=== PATIENT | female | born 1955 ===

== ENCOUNTER 2017-04-28 00:05 | Emergency (ER) | payer OTHER ==
[2017-04-28 00:22] VITALS: BP 141/74; PULSE 91; RESP 16; TEMP 98.4; O2SAT 100
--- NOTE | 2017-04-28 01:07 | ED PDOC ---
HPI: Psych/Substance Abuse Time Seen by Provider: 04/28/17 00:24 Chief Complaint (Nursing): Dizziness/Lightheaded Chief Complaint (Provider): Depression History Per: Patient History/Exam Limitations: clinical condition Onset/Duration Of Symptoms: Days (4) Current Symptoms Are (Timing): Still Present Suicide/Self Injury Attempted (Context): None Modifying Factor(s): None Severity: Moderate Associated Symptoms: Depression. denies: Suicidal Thoughts, Suicidal Plan Involuntary Hold By: None Additional History Per: Patient Additional Complaint(s): 62 y/o female with PMHx Major Depressive Disorder and previous inpatient care for Depression with psychosis, who is here complaining of insomnia, poor appetite, and depression x4 days. She denies any visual/auditory hallucinations , suicidal or homicidal ideation. In the past, she was in the care of psychiatry but is not at this time. Patient also complains of weakness and dizziness. No falls, syncope, numbness, or other complaints. History limited by the patient's psychiatric condition. Past Medical History Reviewed: Historical Data, Nursing Documentation, Vital Signs Vital Signs: Last Vital Signs Temp 98.4 F 04/28/17 00:20 Pulse 91 H 04/28/17 00:20 Resp 16 04/28/17 00:20 BP 141/74 04/28/17 00:20 Pulse Ox 100 04/28/17 00:20 - Medical History PMH: Depression - Family History Family History: States: No Known Family Hx - Home Medications Home Medications: Ambulatory Orders Medication Instructions Recorded hydrOXYzine Pamoate [Vistaril] 25 mg PO HS PRN #7 cap 04/28/17 - Allergies Allergies/Adverse Reactions: Allergies Allergy/AdvReac Type Severity Reaction Status Date / Time Penicillins Allergy SWELLING Verified 04/28/17 00:20 Review of Systems ROS Statement: Except As Marked, All Systems Reviewed And Found Negative Neurological: Positive for: Weakness, Dizziness Psych: Positive for: Depression Physical Exam - Reviewed Nursing Documentation Reviewed: Yes Vital Signs Reviewed: Yes - Physical Exam Appears: Positive for: Well, Non-toxic, No Acute Distress Head Exam: Positive for: ATRAUMATIC, NORMAL INSPECTION, NORMOCEPHALIC Skin: Positive for: Normal Color, Warm, DRY Eye Exam: Positive for: EOMI, Normal appearance, PERRL ENT: Positive for: Normal ENT Inspection Neck: Positive for: Normal, Painless ROM Cardiovascular/Chest: Positive for: Regular Rate, Rhythm Respiratory: Positive for: CNT, Normal Breath Sounds Gastrointestinal/Abdominal: Positive for: Normal Exam, Bowel Sounds, Soft Back: Positive for: Normal Inspection Extremity: Positive for: Normal ROM Neurologic/Psych: Positive for: Alert, Oriented, Mood/Affect (flat) - ECG O2 Sat by Pulse Oximetry: 100 (RA) Pulse Ox Interpretation: Normal Medical Decision Making Medical Decision Making: Time: 1:08a Impression: 62 y/o female with multiple somatic complaints in the setting of known Major Depressive Disorder. Plan: - Crisis Evaluation 01:30: Crisis has seen the patient and cleared her for discharge. Follow up with [facility] arranged. All questions answered and there is agreement with the plan to discharge home with instructions. Patient stable for discharge. Return if symptoms persist or worsen. Scribe Attestation: Documented by Kecia Herr acting as a scribe for Roosevelt Harding MD. Scribe Attestation: All medical record entries made by the Scribe were at my direction and personally dictated by me. I have reviewed the chart and agree that the record accurately reflects my personal performance of the history, physical exam, medical decision making, and the department course for this patient. I have also personally directed, reviewed, and agree with the discharge instructions and disposition. Disposition - Clinical Impression Clinical Impression: Depression - Patient ED Disposition Is Patient to be Admitted: No Doctor Will See Patient In The: Office Counseled Patient/Family Regarding: Diagnosis, Need For Followup - Disposition Referrals: [facility] [Outside] Disposition: Routine/Home Disposition Time: 01:30 Condition: GOOD Additional Instructions: FOLLOW UP AT [address] [phone] YOU HAVE AN APPOINTMENT WITH [facility] ON MAY 08, 2017 AT 9:40AM Prescriptions: hydrOXYzine Pamoate [Vistaril] 25 mg PO HS PRN #7 cap PRN Reason: for insomnia Instructions: Depression (ED) Print Language: SAO TOMEAN
== END 2017-04-28 01:35 | disposition home or self-care (01) ==
LOC: H.ER 00:05
DX: F32.9 Major depressive disorder, single episode, unspecified (principal); Z88.0 Allergy status to penicillin; R42 Dizziness and giddiness; Z00.8 Encounter for other general examination

== ENCOUNTER 2017-04-29 17:39 | Inpatient (IN) | payer OTHER ==
--- NOTE | 2017-04-29 18:54 | ED PDOC ---
HPI: Altered Mental Status Time Seen by Provider: 04/29/17 18:18 Chief Complaint (Nursing): Altered Mental Status History Per: Patient History/Exam Limitations: Other (pt refuses to answer) Onset/Duration Of Symptoms: Gradual (for 1 week) Current Symptoms Are (Timing): Still Present Description Of Symptoms: Not At Baseline Usual Baseline: Alert Confused Use Of Anticoag/Antiplatlets: No Severity: Mild Associated Symptoms: Headache, Confused, Agitated, Trouble Concentrating, Trouble Thinking, Not Eating, Not Drinking, Combative. denies: Fever, Chills, Neck Pain, Back Pain, Seizure, Disoriented, Vomiting, Diarrhea, Dyspnea, Incontinence Past Medical History Reviewed: Historical Data, Nursing Documentation, Vital Signs Vital Signs: Last Vital Signs Temp 98.7 F 04/29/17 17:45 Pulse 95 H 04/29/17 17:45 Resp 22 04/29/17 17:45 BP 160/90 H 04/29/17 17:45 Pulse Ox 97 04/29/17 17:45 - Medical History PMH: Depression Denies: Diabetes, Hepatitis, HIV, HTN, Chronic Kidney Disease, Seizures, Sexually Transmitted Disease - Surgical History Surgical History: No Surg Hx - Family History Family History: States: Unknown Family Hx - Living Arrangements Living Arrangements: With Family - Social History Current smoker - smoking cessation education provided: No Drugs: Denies - Home Medications Home Medications: Ambulatory Orders Medication Instructions Recorded hydrOXYzine Pamoate [Vistaril] 25 mg PO HS PRN #7 cap 04/28/17 - Allergies Allergies/Adverse Reactions: Allergies Allergy/AdvReac Type Severity Reaction Status Date / Time Penicillins Allergy SWELLING Verified 04/28/17 00:20 Review of Systems Review Of Systems: ROS cannot be obtained secondary to pt's inabilty to answer questions. Psych: Positive for: Psychosis Physical Exam - Physical Exam Appears: Positive for: Uncomfortable Head Exam: Positive for: ATRAUMATIC, NORMAL INSPECTION, NORMOCEPHALIC Skin: Positive for: Normal Color, Warm, Dry Eye Exam: Positive for: Normal appearance, EOMI, PERRL Neck: Positive for: Normal, Painless ROM, Supple. Negative for: Decreased ROM, Limited ROM, Trachea Midline Cardiovascular/Chest: Positive for: Regular Rate, Rhythm, Chest Non Tender. Negative for: Edema, Gallop, Murmur, Bradycardia, Tachycardia Respiratory: Positive for: Normal Breath Sounds. Negative for: Decreased Breath Sounds, Accessory Muscle Use, Crackles, Rales, Rhonchi, Stridor, Wheezing Gastrointestinal/Abdominal: Positive for: Normal Exam, Bowel Sounds, Soft. Negative for: Tenderness Extremity: Positive for: Normal ROM. Negative for: Tenderness, Pedal Edema Neurologic/Psych: Positive for: Alert, director child abuse therapy II-XII, Oriented, Mood/Affect (flat) . Negative for: Motor/Sensory Deficits, Aphasia, Facial Droop - ECG O2 Sat by Pulse Oximetry: 97 Pulse Ox Interpretation: Normal Disposition - Clinical Impression Clinical Impression: Depression - Patient ED Disposition Is Patient to be Admitted: Transfer of Care Counseled Patient/Family Regarding: Studies Performed, Diagnosis - Disposition Disposition: Transfer of Care Disposition Time: 18:57 Condition: STABLE Patient Signed Over To: Дмитрий Aponte
[2017-04-29 18:58] LABS: BASO # 0.1 K/uL (0.0-0.2); BASO % 0.8 % (0.0-2.0); EOS # 0.1 K/uL (0.0-0.7); EOS % 0.5 % (0.0-4.0); HEMATOCRIT 44.1 % (34.0-47.0); LYMPH # 4.3 K/uL (1.0-4.3); LYMPH % 36.9 % (20.0-40.0); MEAN CELL VOLUME 86.6 fl (81.0-99.0); MEAN CORPUSCULAR HEMOGLOBIN 28.2 pg (27.0-31.0); MEAN CORPUSCULAR HGB CONC 32.6 g/dL (33.0-37.0); MEAN PLATELET VOLUME 11.6 fl (7.2-11.7); MONO # 0.9 K/uL (0.0-0.8); MONO % 7.8 % (0.0-10.0); NEUT # 6.3 K/uL (1.8-7.0); RED CELL DISTRIBUTION WIDTH 12.8 % (11.5-14.5); WHITE BLOOD COUNT 11.7 K/uL (4.8-10.8)
--- NOTE | 2017-04-29 19:15 | ED PDOC ---
- Laboratory Results Result Diagrams: 04/29/17 18:48 04/29/17 18:50 - ECG O2 Sat by Pulse Oximetry: 97 (RA) Pulse Ox Interpretation: Normal Medical Decision Making Medical Decision Makin:00 Patient is signed out to me by Jose F Talley MD pending crisis evaluation, reevaluation, and final disposition. 21:00 Patient is being placed in ED observation for serial examination to determine stability for disposition. Patient s/o to Dr. Ruiz at 0700 pending [facility] screening. Scribe Attestation: Documented by Deepa Espinosa, acting as a scribe for Дмитрий Aponte MD. Provider Scribe Attestation: All medical record entries made by the Scribe were at my direction and personally dictated by me. I have reviewed the chart and agree that the record accurately reflects my personal performance of the history, physical exam, medical decision making, and the department course for this patient. I have also personally directed, reviewed, and agree with the discharge instructions and disposition. Disposition - Clinical Impression Clinical Impression: Depression - POA Present On Arrival: None - Disposition Disposition: Transfer of Care Disposition Time: 07:00 Condition: STABLE Patient Signed Over To: Buffy Ruiz Handoff Comments: pending [facility] [facility] screening ED OBSERVATION Date of observation admission: 04/29/17 Time of observation admission: 22:36 - Observation admission statement Patient is being placed in observation because:: Need for additional diagnostics to rule-out acute or life threatening condition - Goals of Observation Goals of observation are:: Psychiatric stabilization. - Progress Note Progress Note: 04/29/17 22:38 Patient is currently pending crisis evaluation and possible evaluation by [facility] [facility].
[2017-04-29 19:19] LABS: ALB/GLOB RATIO 1.1 (1.0-2.1); ALCOHOL SERUM < 10 mg/dl (0-10); ALKALINE PHOSPHATASE 94 U/L (38-126); ALT/SGPT 67 U/L (9-52); AST/SGOT 53 U/L (14-36); BILIRUBIN,TOTAL 0.6 mg/dl (0.2-1.3); BLOOD UREA NITROGEN 15 mg/dl (7-17); CALCIUM 9.9 mg/dL (8.4-10.2); CARBON DIOXIDE 25 mmol/L (22-30); CHLORIDE 103 mmol/L (98-107); GFR AFRICAN-AMERICAN > 60; GLUCOSE,RANDOM 112 mg/dL (65-105); LIPASE 124 U/L (23-300); POTASSIUM 3.9 MMOL/L (3.6-5.0); SODIUM 142 mmol/l (132-148); TOTAL PROTEIN 9.5 G/DL (6.3-8.2)
--- NOTE | 2017-04-29 19:47 | CT ---
EXAM: CT Head Without Intravenous Contrast CLINICAL HISTORY: 62 years old, female; Signs and symptoms; Altered mental status/memory loss; Confusion or disorientation; Additional info: AMS. Sent phy. Doc. With request TECHNIQUE: Axial computed tomography images of the head/brain without intravenous contrast. This CT exam was performed using one or more of the following dose reduction techniques: automated exposure control, adjustment of the mA and/or kV according to patient size, and/or use of iterative reconstruction technique. Coronal and sagittal reformatted images were created and reviewed. EXAM DATE/TIME: 04/29/2017 6:34 PM COMPARISON: CT HEAD OR BRAIN W/O CONT 07/23/2012 1:13:36 PM FINDINGS: Brain: Ventricles are normal in size and configuration. There is no midline shift. There are no intra-axial or extra-axial mass lesions or areas of hemorrhage. There are no abnormal fluid collections. Ott-white differentiation is maintained. Ventricles: See above. Bones: Cranial vault is intact. Soft tissues: unremarkable Sinuses: There is no acute sinusitis. Ears and mastoids: Middle ears and mastoids are unremarkable Orbits: Orbital contents are unremarkable. IMPRESSION: No acute intracranial abnormality
[2017-04-29 20:50] LABS: URINE BILIRUBIN NEGATIVE (NEGATIVE); URINE BLOOD NEGATIVE (NEGATIVE); URINE COLOR STRAW (YELLOW); URINE GLUCOSE (UA) NEG (Normal); URINE KETONE NEGATIVE (NEGATIVE); URINE LEUKOCYTE ESTERASE NEG Leu/uL (Negative); URINE PROTEIN NEGATIVE (NEGATIVE); URINE UROBILINOGEN 0.2-1.0 mg/dL (0.2-1.0)
--- NOTE | 2017-04-30 07:24 | ED PDOC ---
- Laboratory Results Result Diagrams: 04/29/17 18:48 04/29/17 18:50 - ECG O2 Sat by Pulse Oximetry: 97 (RA) Medical Decision Making Medical Decision Making: received patient form Dr. Aponte. Patient pending [facility] screening. 09.03a - patient to be transferred to [facility] - 03.30p. patient decided to sign in voluntarily Disposition Doctor Will See Patient In The: Hospital - Clinical Impression Clinical Impression: Depression, Schizoaffective disorder - POA Present On Arrival: None - Disposition Disposition: Admitted as In-Patient Disposition Time: 16:30 Condition: STABLE
--- NOTE | 2017-04-30 08:13 | CARD ---
APPROVED REPORT EKG Measurement Heart [id number] CT 140P48 [id number] <Conclusion> Normal sinus rhythm Normal ECG
--- NOTE | 2017-04-30 10:01 | RAD ---
PROCEDURE: CHEST RADIOGRAPH, 1 VIEW HISTORY: ams COMPARISON: None available. FINDINGS: LUNGS: Clear. PLEURA: No pneumothorax or pleural fluid seen. CARDIOVASCULAR: Normal. OSSEOUS STRUCTURES: No significant abnormalities. VISUALIZED UPPER ABDOMEN: Normal. OTHER FINDINGS: None. IMPRESSION: No active disease.
[2017-04-30 22:59] VITALS: RESP 18
[2017-05-01] MEDS ORDERED: Magnesium Hydroxide Susp 30 ml UD PO PRN (04:44)
[2017-05-01] MEDS ORDERED: DiphenhydrAMINE 50 mg/ml Inj IM PRN (04:44)
[2017-05-01] MEDS ORDERED: Alum-Mag Hydrox-Simethicone Susp (30 mL) PO PRN (04:44)
[2017-05-01] MEDS ORDERED: Pneumococcal 23-Valent Vaccine IM ONE (09:00)
--- NOTE | 2017-05-01 09:35 | PCM.PSYCH ---
Initial Psychiatric Evaluation - Initial Psychiatric Evaluation Type of Admission: Voluntary Legal Status: Other (pt is confused and refusing treatment) Chief Complaint (in patient's own words): pt closes eyes Patient's Reaction to Hospitalization: uncooperative History of Present Illness and Precipitating Events: pt seen with zambian speaking social media content specialist. pt is confused and unable to give any details regarding her admission or why she is in the hospital. pt was brought to the ER by her family. she recently had a behavioral change family feels was precipitated by a move. the patient was not oriented in the ER was screened and was accepted at [facility]. at some point, the patient allegedly became oriented and calm. The PES worker was able to have patient agree to treatment and, by their report, understand the admission form and sign in voluntarily to the hospital. Upon arrival to the unit, the patient was grossly disoriented, confused, agitated and refusing treatment. This morning she is pacing the unit and trying to enter every room on the unit. she is oriented to self and place but cannot say why she is here. she does not acknowledge the need for treatment. she is refusing medications. she cannot provide any history. per the chart. pes assessment: "obtained additional collateral information from the pt.s son and daughter, Deepa Goodson ([phone]).. The pt.s children report that the stress of a recent relocation may have contributed to the pt.s altered her mental status. The pt.s son reports that the pt. is refusing to tend to her hygiene. The pt.s daughter reports that the pt. has been exhibiting irritable behavior within the home setting and is somewhat paranoid. The pt.s son reports that the pt. is having difficulty remembering. The pt.s son reports that the pt. is exhibiting odd behavior, asking her children not to pull her hair. The pt.s children report that the pt. is religiously pre-occupied, reporting to her children that the saints will take care of her. The pt.s son reports that in 2008 the pt. exhibited similar symptoms, also reporting that the pt. had an incident where she fell back and hit her head; the pt. was medically cleared and she was given medication prescriptions as follow: Prozac 40Mg; Haldol 5Mg; Cogentin 1Mg; Depakote 250Mg. The pt.s son reports that in 2011 the pt. was admitted to the psychiatric unit for similar symptoms. The pt. daughter reports that the pt. does have a thyroid problem but no other known medical issues. The pt.s daughter reports that her grandmother had a history of forgetfulness. The pt.s daughter reports that the pt. is exhibiting symptoms of depression recalling many past memories about things that she has lost or people that have . The pt.s son reports that the pt. does not always express her feelings. The pt.s son reports that the pt. was asking her son not to touch her and was exhibiting paranoid behavior. The pt.s daughter reports that the pt. has not slept in 4-5 days. " Current Medications: Active Medications Generic Name Dose Route Start Last Admin Trade Name Freq PRN Reason Stop Dose Admin Acetaminophen 650 mg 05/01/17 04:44 Tylenol 325mg Tab PO Q4 PRN Pain, moderate (4-7) Al Hydrox/Mg Hydrox/Simethicone 30 ml 05/01/17 04:44 Maalox Plus 30 Ml PO Q4 PRN Dyspepsia Diphenhydramine HCl 50 mg 05/01/17 04:44 Benadryl IM Q6 PRN Extrapyramidal S/S Unable PO Diphenhydramine HCl 50 mg 05/01/17 04:44 Benadryl PO Q6 PRN Extrapyramidal Symptoms Haloperidol 5 mg 05/01/17 04:44 Haldol PO Q4 PRN Agitation Haloperidol 2 mg 05/01/17 09:30 Haldol PO BID JAN Haloperidol Lactate 5 mg 05/01/17 04:44 Haldol IM Q4 PRN Agitation, Unable to Take PO Lorazepam 1 mg 05/01/17 04:44 05/01/17 05:15 Ativan IM 1 mg Q4 PRN Administration Anxiety/Agitation,Unable PO Lorazepam 1 mg 05/01/17 04:44 Ativan PO Q4 PRN Anxiety/Agitation Magnesium Hydroxide 30 ml 05/01/17 04:44 Milk Of Magnesia PO HS PRN Constipation Past Psychiatric History - Past Psychiatric History Previous Treatment History: Inpatient Prior Professional Help: was on depakote, haldol and cogentin in the past At [facility] hospital: previously admitted at [facility] History of Abuse: unknown History of ETOH/Drug Use: no known history History of Family Illness: unknown Pertinent Medical Hx (Current Medical&Sleep Prob, Allergies): Allergies Allergy/AdvReac Type Severity Reaction Status Date / Time Penicillins Allergy SWELLING Verified 04/28/17 00:20 Unobtainable 04/30/17 Review of Systems - Psychiatric Psychiatric: As Per HPI, Abnormal Sleep Pattern, Anxiety, Behavioral Changes, Confusion, Irritability, Suicidal Ideation Mental Status Examination - Personal Presentation Personal Presentation: Looks stated age Additional comments: unkempt, unsteady gait - Affect Affect: Constricted - Motor Activity Motor Activity: Psychomotor Agitation - Reliability in Providing Information Reliability in Providing Information: Poor, due to alteration in thoughts, Poor , due to altered mood - Speech Speech: Disorganized, Tangential - Mood Mood: Anxious, Other (agitated) - Formal Thought Process Formal Thought Process: Loosening of associations, Flight of ideas, Circumstantial - Obsessions/Compulsions Obsessions: No Compulsions: No - Cognitive Functions Orientation: Person, Place Sensorium: Alert Attention/Concentration: Easily distracted Abstract Thinking: [place] Estimate of Intelligence: Below average Judgement: Imparied, as evidence by: Poor judgement, Imparied, as evidence by: Lack of insight into illness Memory: Recent impaired, as evidence by: Inability to recall events of the day, Remote impaired as evidenced by: Inability to recall sig life events - Risk Risk: Suicidal (per chart passive thoughts), Elopement, Falls, Diminished functioning - Strength & Assets Inventory Strength & Assets Inventory: Family support - Limitations Limitations: Decreased memory, recent DSM 5 DX - DSM 5 DSM 5 Diagnosis: schizoaffective disorder, bipolar type by history - Recommended/Plan of Treatment Treatment Recommendations and Plan of Treatment: pt has been admitted to [facility] by dr. berg we will keep the pt on a 1:1 supervision we will restart pt's previous medications, but at this point pt is refusing the patient will be screened again for involuntary treatment at [facility] as she is a danger to self, not oriented and is not accepting treatment- she has spit out oral meds that were offered hospitalist consult Projected ELOS: 5 days Prognosis: guarded
[2017-05-01 13:02] LABS: CHOLESTEROL 237 mg/dL (0-199)
--- NOTE | 2017-05-01 13:16 | CP.PCM.HP ---
History of Present Illness - History of Present Illness History of Present Illness: CC: Medical consult HPI: Patient was seen and examined at bedside, patient appears sedated from medication. History was obtained from medical chart and not able to obtained from patient. 62 year old female with PMHx of HTN , depression and schizoaffective disorder admitted for worsening behavioral changes. Patient denies any Chest pain,no SOB, no fevers, no chills. There is no nausea , no emesis, no diarrhea, no hematochezia, no melena, no dysuria, no frequency or urgency. There are no complaints of myalgia or arthralgias, no URI symptoms , no numbness or tingling or limb weakness. ROS: pertinent positives in HPI, all other 10 ROS are negative by me PMD: None PMH: HTN, depression and schizoaffective disorder PSH: none MEDICATIONS: Prozac 40mg, Haldol 5mg; Cogentin 1mg; Depakote 250mg ALLERGIES: PCN FH: Denies any FH of CAD/SD, HTN, CVA, Cancer, DM II SH: Tobacco - Denies EtOH - Denies Drugs - Denies Advanced Directives/Surrogate: Deepa Lay ([phone]) Present on Admission - Present on Admission Any Indicators Present on Admission: No Review of Systems - Review of Systems All systems: reviewed and no additional remarkable complaints except - Constitutional Constitutional: As Per HPI Past Patient History - Infectious Disease Hx of Infectious Diseases: None - Past Social History Drugs: Denies - CARDIAC Hx Cardiac Disorders: No - PULMONARY Hx Respiratory Disorders: No - NEUROLOGICAL Hx Neurological Disorder: No - HEENT Hx HEENT Problems: No - RENAL Hx Chronic Kidney Disease: No - ENDOCRINE/METABOLIC Hx Endocrine Disorders: Yes 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,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) - HEMATOLOGICAL/ONCOLOGICAL Hx Blood Disorders: No - INTEGUMENTARY Hx Dermatological Problems: No - MUSCULOSKELETAL/RHEUMATOLOGICAL Hx Musculoskeletal Disorders: No - GASTROINTESTINAL Hx Gastrointestinal Disorders: No - GENITOURINARY/GYNECOLOGICAL Hx Genitourinary Disorders: No - PSYCHIATRIC Hx Substance Use: No - SURGICAL HISTORY Hx Surgeries: No - ANESTHESIA Hx Anesthesia: No Meds Allergies/Adverse Reactions: Allergies Allergy/AdvReac Type Severity Reaction Status Date / Time Penicillins Allergy SWELLING Verified 04/28/17 00:20 Physical Exam - Constitutional Appears: Unkempt, Older Than Stated Age, Confused - Head Exam Head Exam: ATRAUMATIC, NORMAL INSPECTION - ENT Exam ENT Exam: Mucous Membranes Moist, Normal Exam - Neck Exam Neck exam: Positive for: Full Rom - Respiratory Exam Respiratory Exam: Clear to Auscultation Bilateral, NORMAL BREATHING PATTERN - Cardiovascular Exam Cardiovascular Exam: REGULAR RHYTHM, RRR - GI/Abdominal Exam GI & Abdominal Exam: Normal Bowel Sounds, Soft - Extremities Exam Extremities exam: Positive for: normal inspection - Back Exam Back exam: CVA tenderness (L) - Neurological Exam Neurological exam: Altered - Skin Skin Exam: Normal Color, Warm Results - Vital Signs Recent Vital Signs: Last Vital Signs Temp 98.2 F 04/30/17 20:53 Pulse 93 H 04/30/17 20:53 Resp 18 04/30/17 22:30 BP 155/83 H 04/30/17 20:53 Pulse Ox 99 04/30/17 20:53 - Labs Result Diagrams: 04/29/17 18:48 04/29/17 18:50 Labs: Laboratory Results - last 24 hr 05/01/17 12:32 Triglycerides 202 H Cholesterol 237 H LDL Cholesterol Direct 151 H HDL Cholesterol 44 Assessment & Plan (1) Schizoaffective disorder Status: Acute Comment: Patient will be transfer to [facility]. continue current management (2) Depression Status: Acute Comment: continue with current management (3) Hypertension Status: Acute Comment: -stable. -no med for now. -monitor vitals Decision To Admit - Pt Status Changed To: Hospital Disposition Of: Inpatient - Admit Certification Admit to Inpatient:: After my assessment, the patient will require hospitalization for at least two midnights. This is because of the severity of symptoms shown, intensity of services needed, and/or the medical risk in this patient being treated as an outpatient. - . Bed Request Type: Adult Psychiatry Admitting Physician: Wanda Jiménez
[2017-05-01] MEDS: Divalproex 125 mg Sprinkle Capsule PO SCH (17:28)
[2017-05-01 23:33] VITALS: BP 124/70; PULSE 86; TEMP 97.6; O2SAT 98
[2017-05-02] MEDS: Divalproex 125 mg Sprinkle Capsule PO SCH ×2 (08:53→17:24)
--- NOTE | 2017-05-02 10:39 | PCM.PYCHPN ---
Psychiatric Progress Note - Psychiatric Progress Note Patient seen today, length of contact: discussed with team Patient Chief Complaint: sleeping Problems Identified/Issues Discussed: pt sleeping. she is accepted at [facility] [place]. she was agitated, pacing and with poor impulse control yesterday. given im meds. took meds by mouth this am. Medication Change: No Medical Record Reviewed: Yes Mental Status Examination - Cognitive Function Orientation: Person, Place Memory: Intact Attention: Poor Concentration: Poor Association: Loose Fund of Knowledge: Poor Decription of patient's judgement and insights: poor - Mood Mood: Anxious, Other (agitated) - Affect Affect: Constricted - Formal Thought Process Formal Thought Process: Loosening of associations, Flight of ideas, Circumstantial - Suicidal Ideation Suicidal Ideation: No - Homicidal Ideation Homicidal Ideation: No Goal/Treatment Plan - Goal/Treatment Plan Need for Continued Stay: Remain at risks for inpatient hospitalization, Discharge may exacerbated symptoms Progress Toward Problem(s) and Goals/Treatment Plan: schizoaffective disorder continue current medications transfer to [facility] [place] when bed available continue 1:1 supervision Estimated Date of D/C: 05/02/17
--- NOTE | 2017-05-03 10:37 | PCM.PYCHPN ---
Psychiatric Progress Note - Psychiatric Progress Note Patient seen today, length of contact: discussed with team Patient Chief Complaint: pt has been [place] [facility] [place] transferred to [facility] [place]. Medication Change: No Medical Record Reviewed: Yes Mental Status Examination - Cognitive Function Orientation: Person, Place Memory: Intact Attention: Poor Concentration: Poor Association: Loose Fund of Knowledge: Poor - Mood Mood: Anxious, Other (agitated) - Affect Affect: Constricted - Formal Thought Process Formal Thought Process: Loosening of associations, Flight of ideas, Circumstantial - Suicidal Ideation Suicidal Ideation: No - Homicidal Ideation Homicidal Ideation: No Goal/Treatment Plan - Goal/Treatment Plan Need for Continued Stay: Remain at risks for inpatient hospitalization, Discharge may exacerbated symptoms Estimated Date of D/C: 05/02/17
== END 2017-05-03 02:00 | DRG 430 ==
LOC: H.ER 17:39 → H.EROBSV 21:00 → OBSVTOIN 04-30 16:27 → H.ERHOLD 04-30 17:39 → H.PSYCH 04-30 22:04
PROVIDERS: ADMIT Psychiatry & Neurology Psychiatry; ATTEND Psychiatry & Neurology Psychiatry
PROC: GZ51ZZZ Individual Psychotherapy, Behavioral (ICD-10-PCS; principal; 2017-04-30)
DX: F25.0 Schizoaffective disorder, bipolar type (principal); I10 Essential (primary) hypertension; E03.9 Hypothyroidism, unspecified

== ENCOUNTER 2017-07-14 12:13 | Emergency (ER) | payer OTHER ==
[2017-07-14 12:30] VITALS: BP 154/77; PULSE 76; RESP 16; TEMP 97.1; O2SAT 97
[2017-07-14 14:31] LABS: BASO # 0.1 K/uL (0.0-0.2); BASO % 0.9 % (0.0-2.0); EOS # 0.1 K/uL (0.0-0.7); EOS % 0.6 % (0.0-4.0); HEMOGLOBIN 14.4 g/dL (12.0-16.0); LYMPH # 3.5 K/uL (1.0-4.3); LYMPH % 40.2 % (20.0-40.0); MEAN CELL VOLUME 87.7 fl (81.0-99.0); MEAN CORPUSCULAR HEMOGLOBIN 28.9 pg (27.0-31.0); MEAN PLATELET VOLUME 11.9 fl (7.2-11.7); MONO # 0.5 K/uL (0.0-0.8); MONO % 5.2 % (0.0-10.0); NEUT # 4.6 K/uL (1.8-7.0); NEUT % 53.1 % (50.0-75.0); NRBC % 0.1 % (0.0-0.0); RBC 4.99 Mil/uL (3.80-5.20); RED CELL DISTRIBUTION WIDTH 13.2 % (11.5-14.5); WHITE BLOOD COUNT 8.7 K/uL (4.8-10.8)
[2017-07-14 14:37] LABS: ACETAMINOPHEN < 10.0 ug/ml (10.0-30.0); BLOOD UREA NITROGEN 17 mg/dl (7-17); CALCIUM 9.7 mg/dL (8.4-10.2); GFR AFRICAN-AMERICAN > 60; GFR NON-AFRICAN AMERICAN > 60; SALICYLATE < 1.0 mg/dl
--- NOTE | 2017-07-14 15:40 | CT ---
PROCEDURE: CT HEAD WITHOUT CONTRAST. HISTORY: diffuse tremors COMPARISON: Noncontrast head CT performed 04/29/17 TECHNIQUE: Axial computed tomography images were obtained through the head/brain without intravenous contrast. Radiation dose: Total exam DLP = 1064.08 mGy-cm. This CT exam was performed using one or more of the following dose reduction techniques: Automated exposure control, adjustment of the mA and/or kV according to patient size, and/or use of iterative reconstruction technique. FINDINGS: HEMORRHAGE: No intracranial hemorrhage. BRAIN: No mass effect or edema. The van-white matter differentiation appears intact. Please note that MRI with diffusion imaging is more sensitive in the detection of acute ischemic event. VENTRICLES: No hydrocephalus. CALVARIUM: Unremarkable. PARANASAL SINUSES: Unremarkable as visualized. No significant inflammatory changes. MASTOID AIR CELLS: Unremarkable as visualized. No inflammatory changes. OTHER FINDINGS: None. IMPRESSION: No acute intracranial pathology identified.
--- NOTE | 2017-07-14 16:34 | ED PDOC ---
HPI: Psych/Substance Abuse Time Seen by Provider: 07/14/17 12:53 Chief Complaint (Nursing): Psychiatric Evaluation History Per: Patient, Family History/Exam Limitations: no limitations Onset/Duration Of Symptoms: Gradual Current Symptoms Are (Timing): Still Present Modifying Factor(s): None Severity: Mild Additional History Per: Patient, Family Additional Complaint(s): Pt. complains of "feeling anxious and no relief from anxiety even though taking Lorazepam 0.5mg x 2 months and noticed uncontrollable shaking of head x 1 week" . 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) Denies: Diabetes, Hepatitis, HIV, HTN, Chronic Kidney Disease, Seizures, Sexually Transmitted Disease - Family History Family History: States: Unknown Family Hx - Living Arrangements Living Arrangements: With Family - Social History Current smoker - smoking cessation education provided: No - Home Medications Home Medications: Ambulatory Orders Medication Instructions Recorded Ciprofloxacin [Cipro] 500 mg PO BID #20 tab 07/14/17 - Allergies Allergies/Adverse Reactions: Allergies Allergy/AdvReac Type Severity Reaction Status Date / Time Penicillins Allergy SWELLING Verified 04/28/17 00:20 Review of Systems ROS Statement: Except As Marked, All Systems Reviewed And Found Negative Constitutional: Negative for: Fever, Chills Cardiovascular: Negative for: Chest Pain, Palpitations Respiratory: Negative for: Cough, Shortness of Breath Gastrointestinal: Negative for: Nausea, Vomiting, Abdominal Pain Genitourinary Female: Negative for: Dysuria Musculoskeletal: Negative for: Neck Pain Neurological: Positive for: Other (has mild head bobbing no other tremors intermittent). Negative for: Weakness, Numbness, Change in Speech, Confusion, Seizures, Altered Mental Status, Headache, Dizziness Psych: Negative for: Anxiety, Depression, Psychosis, Suicidal ideation, Withdrawal Physical Exam - Reviewed Nursing Documentation Reviewed: Yes Vital Signs Reviewed: Yes - Physical Exam Appears: Positive for: Well, No Acute Distress Head Exam: Positive for: NORMAL INSPECTION, NORMOCEPHALIC Eye Exam: Positive for: Normal appearance, EOMI, PERRL Neck: Positive for: Normal, Painless ROM, Supple Cardiovascular/Chest: Positive for: Regular Rate, Rhythm, Chest Non Tender. Negative for: Edema, Gallop Respiratory: Positive for: Normal Breath Sounds. Negative for: Decreased Breath Sounds, Accessory Muscle Use, Crackles, Rales, Rhonchi, Stridor, Wheezing Gastrointestinal/Abdominal: Positive for: Normal Exam, Bowel Sounds, Soft. Negative for: Tenderness Back: Positive for: Normal Inspection. Negative for: L CVA Tenderness, R CVA Tenderness Extremity: Positive for: Normal ROM. Negative for: Tenderness, Pedal Edema, Calf Tenderness, Capillary Refill, Deformity, Swelling Neurologic/Psych: Positive for: Alert, recycling center operator II-XII, Oriented, Mood/Affect (calm) , Cerebellar Tests (nml), Gait (steady), Other (mild head bobbing). Negative for: Motor/Sensory Deficits, Aphasia, Facial Droop - Laboratory Results Result Diagrams: 07/14/17 14:23 07/14/17 14:23 Urine dip results: Positive for: Nitrate - ECG O2 Sat by Pulse Oximetry: 97 Pulse Ox Interpretation: Normal - Progress ED Course And Treament: advise antibotics advise close f/u in med clinic Re-evaluation Time: 16:00 Condition: Improved Disposition - Clinical Impression Clinical Impression: UTI (urinary tract infection), Tremors of nervous system - Patient ED Disposition Is Patient to be Admitted: No Counseled Patient/Family Regarding: Studies Performed, Diagnosis, Need For Followup, Rx Given - Disposition Referrals: [facility] [Outside] (2 to 3 days) Disposition: Routine/Home Disposition Time: 16:32 Condition: GOOD Prescriptions: Ciprofloxacin [Cipro] 500 mg PO BID #20 tab Instructions: Urinary Tract Infection in Women (ED), Tremors (ED) Forms: [employer] (Yoruba) Print Language: IRISH
[2017-07-14 16:52] LABS: BARBITURATES, UR NEGATIVE (NEGATIVE); BENZODIAZEPINES, UR NEGATIVE (NEGATIVE); OPIATES, UR NEGATIVE (NEGATIVE); PHENCYCLIDINE, UR NEGATIVE (NEGATIVE)
[2017-07-14 17:36] LABS: T4 10.3 ug/dl (5.5-11.0)
[2017-07-14 17:49] LABS: T3 0.994 nmol/L (1.49-2.60)
[2017-07-14 19:06] LABS: SQUAMOUS EPITHIAL 3 /hpf (0-5); URINE BACTERIA MANY (<OCC)
[2017-07-14 19:25] LABS: URINE CLARITY SLIGHT-CLOUDY (Clear); URINE COLOR YELLOW (YELLOW)
[2017-07-14 19:26] LABS: PH,URINE 5.5 (5.0-8.0); URINE BILIRUBIN NEGATIVE (NEGATIVE); URINE BLOOD SMALL (NEGATIVE); URINE GLUCOSE (UA) NEG (Normal)
[2017-07-14 19:27] LABS: URINE NITRATE POSITIVE (NEGATIVE); URINE UROBILINOGEN 0.2 mg/dL (0.2-1.0)
[2017-07-14 19:28] LABS: URINE LEUKOCYTE ESTERASE NEG Leu/uL (Negative)
== END 2017-07-14 16:34 | disposition home or self-care (01) ==
LOC: H.ER 12:13
DX: N39.0 Urinary tract infection, site not specified (principal); R25.1 Tremor, unspecified

== ENCOUNTER 2017-07-24 12:40 | Emergency (ER) | payer SELFPAY ==
[2017-07-24 12:46] VITALS: O2SAT 96
[2017-07-24 13:57] LABS: BASO % 0.5 % (0.0-2.0); EOS % 0.4 % (0.0-4.0); HEMATOCRIT 40.8 % (34.0-47.0); LYMPH # 2.9 K/uL (1.0-4.3); LYMPH % 38.9 % (20.0-40.0); MEAN CELL VOLUME 86.3 fl (81.0-99.0); MEAN CORPUSCULAR HGB CONC 33.6 g/dL (33.0-37.0); MONO # 0.4 K/uL (0.0-0.8); MONO % 4.8 % (0.0-10.0); NEUT # 4.1 K/uL (1.8-7.0); NEUT % 55.4 % (50.0-75.0); NRBC % 0.1 % (0.0-0.0); RED CELL DISTRIBUTION WIDTH 13.3 % (11.5-14.5); WHITE BLOOD COUNT 7.3 K/uL (4.8-10.8)
[2017-07-24 14:09] LABS: ALB/GLOB RATIO 1.2 (1.0-2.1); ALCOHOL SERUM < 10 mg/dl (0-10); ALKALINE PHOSPHATASE 83 U/L (38-126); ALT/SGPT 41 U/L (9-52); AST/SGOT 33 U/L (14-36); BILIRUBIN,TOTAL 0.7 mg/dl (0.2-1.3); BLOOD UREA NITROGEN 12 mg/dl (7-17); CALCIUM 9.4 mg/dL (8.4-10.2); CARBON DIOXIDE 27 mmol/L (22-30); CHLORIDE 103 mmol/L (98-107); GFR AFRICAN-AMERICAN > 60; GLUCOSE,RANDOM 93 mg/dL (65-105); POTASSIUM 4.2 MMOL/L (3.6-5.0); SODIUM 140 mmol/l (132-148); TOTAL PROTEIN 8.3 G/DL (6.3-8.2)
--- NOTE | 2017-07-24 15:06 | ED PDOC ---
HPI: Psych/Substance Abuse Time Seen by Provider: 07/24/17 12:50 Chief Complaint (Nursing): Psychiatric Evaluation Chief Complaint (Provider): Tremors History Per: Patient History/Exam Limitations: no limitations Current Symptoms Are (Timing): Still Present Additional Complaint(s): Miguel Angel Goodman, a 62 year old female, presents to the ED complaining of tremors in her chin and jaw. The patient states that the tremors were initially only in her chin and jaw but now she has noticed tremors all over her body. As per , he has been giving the patient her normal daily dosage of medication as prescribed. He states that the patient was seen at the clinic and was sent to the ED for evaluation. 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) Denies: Diabetes, Hepatitis, HIV, HTN, Chronic Kidney Disease, Seizures, Sexually Transmitted Disease - Family History Family History: States: Unknown Family Hx - Home Medications Home Medications: Ambulatory Orders Medication Instructions Recorded Ciprofloxacin [Cipro] 500 mg PO BID #20 tab 07/14/17 Lorazepam [Ativan] 1 mg PO BID PRN #10 tab 07/24/17 - Allergies Allergies/Adverse Reactions: Allergies Allergy/AdvReac Type Severity Reaction Status Date / Time Penicillins Allergy SWELLING Verified 04/28/17 00:20 Review of Systems Constitutional: Positive for: Other (Diffuse body tremors) ENT: Positive for: Other (Tremors in the chin and jaw) Physical Exam - Reviewed Nursing Documentation Reviewed: Yes Vital Signs Reviewed: Yes - Physical Exam Appears: Positive for: Non-toxic, No Acute Distress Head Exam: Positive for: ATRAUMATIC, NORMAL INSPECTION, NORMOCEPHALIC Skin: Positive for: Normal Color, Warm, Dry. Negative for: Rash Eye Exam: Positive for: Normal appearance, EOMI, PERRL. Negative for: Nystagmus ENT: Positive for: Normal ENT Inspection. Negative for: Nasal Congestion, Pharyngeal Erythema Neck: Positive for: Normal, Painless ROM, Supple. Negative for: Decreased ROM Cardiovascular/Chest: Positive for: Regular Rate, Rhythm, Chest Non Tender. Negative for: Tachycardia Respiratory: Positive for: Normal Breath Sounds. Negative for: Rales, Rhonchi, Wheezing, Respiratory Distress Gastrointestinal/Abdominal: Positive for: Normal Exam, Bowel Sounds, Soft. Negative for: Guarding, Rebound Back: Positive for: Normal Inspection. Negative for: L CVA Tenderness Extremity: Positive for: Normal ROM. Negative for: Tenderness, Deformity, Swelling Neurologic/Psych: Positive for: Alert, Oriented, Gait - Laboratory Results Result Diagrams: 07/24/17 13:45 07/24/17 13:45 - ECG O2 Sat by Pulse Oximetry: 96 (RA) Pulse Ox Interpretation: Normal Medical Decision Making Medical Decision Makin Initial Impression: 62 year old female presenting with diffuse bodily chills Initial Plan: * EKG * Alcohol Serum * Comp Metabolic panel * Drug Screen * CBC * Urine Culture * Reevaluation EKG performed: * Normal Sinus Rhythm Pt reports decreased tremor with ativan [address] normal states patient no longer is taking haldol Scribe Attestation Documented by Savanna Lynch acting as a scribe for Marta Gaitan PA-C. Scribe Attestation All medical record entries made by the Scribe were at my direction and personally dictated by me. I have reviewed the chart and agree that the record accurately reflects my personal performance of the history, physical exam, medical decision making, and the department course for this patient. I have also personally directed, reviewed, and agree with the discharge instructions and disposition. Disposition - Clinical Impression Clinical Impression: Tremor - Patient ED Disposition Is Patient to be Admitted: No Counseled Patient/Family Regarding: Diagnosis, Need For Followup, Rx Given - Disposition Disposition: Routine/Home Disposition Time: 21:21 Condition: GOOD Additional Instructions: PT HAS BEEN GIVEN AN APPOINTMENT AT [address] [phone] AUGUST 31M 2017 AT 11AM WITH SHERRON DUKE Prescriptions: Lorazepam [Ativan] 1 mg PO BID PRN #10 tab PRN Reason: Tremor Instructions: Tremors (ED)
--- NOTE | 2017-07-24 19:39 | CT ---
EXAM: CT Head Without Intravenous Contrast EXAM DATE/TIME: 07/24/2017 6:41 PM CLINICAL HISTORY: 62 years old, female; Signs and symptoms; Other: Tremors; Patient HX: See phys doc; Additional info: Tremor TECHNIQUE: Axial computed tomography images of the head/brain without intravenous contrast. All CT scans at this facility use one or more dose reduction techniques, viz.: automated exposure control; ma/kV adjustment per patient size (including targeted exams where dose is matched to indication; i.e. head); or iterative reconstruction technique. Coronal and sagittal reformatted images were created and reviewed. COMPARISON: There are no prior studies for comparison. FINDINGS: Brain: Ventricles are normal in size and configuration. There is no midline shift. There is mild prominence of sulci and gyri. There are no intra-axial or extra-axial mass lesions or areas of hemorrhage. There are no abnormal fluid collections. Ott-white differentiation is maintained. Ventricles: See above. Bones: Cranial vault is intact. Soft tissues: unremarkable Sinuses: There is no acute sinusitis. Ears and mastoids: Middle ears and mastoids are unremarkable Orbits: Orbital contents are unremarkable. IMPRESSION: No acute intracranial abnormality
[2017-07-24 22:33] VITALS: BP 138/78; PULSE 76; RESP 18; TEMP 97.6
--- NOTE | 2017-07-25 09:15 | CARD ---
APPROVED REPORT EKG Measurement Heart [id number] <Conclusion> Normal Sinus Rhtyhm with artifact
== END 2017-07-24 22:34 | disposition home or self-care (01) ==
LOC: EDBD → H.ER 12:40
DX: R25.1 Tremor, unspecified (principal); E03.9 Hypothyroidism, unspecified; F32.9 Major depressive disorder, single episode, unspecified; Z88.0 Allergy status to penicillin